=== PATIENT | female | born 1940 | race Caucasian/White ===

== ENCOUNTER → 2017-04-05 | Outpatient (CLI) | payer MEDICARE ==
--- NOTE | 2017-04-05 10:27 | XR ---
EXAMINATION TYPE: XR knee complete bilateral DATE OF EXAM: 04/05/2017 COMPARISON: NONE HISTORY: 77 year-old female bilateral knee pain. TECHNIQUE: 3 views each side FINDINGS: There is mild generous spurring in the medial and patellofemoral compartments. Extensor mechanisms ar e intact without significant joint effusions. No acute fracture, subluxation, or dislocation. Sclerot ic focus suggestive of a bone island within the anterior proximal right tibial metaphysis. IMPRESSION: Mild degenerative spurring in the medial and patellofemoral compartments on both sides. No acute osse ous abnormality seen. Weightbearing view could better assess the joint space.
== END | disposition home or self-care (01) ==
LOC: RADXRMAIN 09:33
PROVIDERS: ATTEND Family Medicine
DX: M22.2X1 Patellofemoral disorders, right knee (principal); M22.2X2 Patellofemoral disorders, left knee; M25.561 Pain in right knee; M25.562 Pain in left knee

== ENCOUNTER → 2017-06-11 | Outpatient (CLI) | payer MEDICARE ==
[2017-06-11 16:12] LABS: Treponemal Ab Non-Reactive (Non-Reactive)
== END | disposition home or self-care (01) ==
LOC: LABWHC1 10:23
PROVIDERS: ATTEND Psychiatry & Neurology Neurology
DX: G62.9 Polyneuropathy, unspecified (principal); R20.2 Paresthesia of skin; G99.2 Myelopathy in diseases classified elsewhere; R94.8 Abnormal results of function studies of other organs and systems
CPT/HCPCS: 36415; 82550; 82565; 84165; 84207; 85652; 86780

== ENCOUNTER → 2017-06-13 | Outpatient (CLI) | payer MEDICARE ==
--- NOTE | 2017-06-13 10:02 | US ---
EXAMINATION TYPE: US venous doppler duplex LE LT DATE OF EXAM: 06/13/2017 9:49 AM COMPARISON: NONE CLINICAL HISTORY: I82.409 Acute embolism and thrombosis of unspecified deep ve. Left leg numbness, pa tient on blood thinners SIDE PERFORMED: Left TECHNIQUE: The lower extremity deep venous system is examined utilizing real time linear array sonog gabriela with graded compression, doppler sonography and color-flow sonography. VESSELS IMAGED: External Iliac Vein (EIV) Common Femoral Vein Deep Femoral Vein Greater Saphenous Vein * Femoral Vein Popliteal Vein Small Saphenous Vein * Proximal Calf Veins (* superficial vessels) Left Leg: Appears negative for DVT Grayscale, color doppler, spectral doppler imaging performed of the deep veins of the left lower extr emity. There is normal flow, compressibility, vascular waveforms. IMPRESSION: No ultrasound evidence for acute DVT in the left lower extremity.
--- NOTE | 2017-06-13 13:14 | MR ---
EXAMINATION TYPE: MR cervical spine with and without contrast. DATE OF EXAM: 06/13/2017 COMPARISON: 11/02/2009 HISTORY: myelopathy TECHNIQUE: Exam limited by artifact. Multiplanar, multisequence images of the cervical spine were acquired utilizing 7 mL intravenous Gada vist gadolinium contrast. Diffusion weighted imaging was performed. C2-C3: Chronic appearing deformity of the odontoid is stable from previous exam. Posterior spondylosi s and hypertrophic changes but no canal stenosis or focal herniation. Uncovertebral joint hypertrophy with no significant foraminal encroachment. C3-C4: Degenerative disc disease with bilateral facet arthropathy and uncovertebral joint hypertrophy . There is moderate bilateral foraminal encroachment greater on the right due to uncovertebral joint hypertrophy and disc bulging capped by spur. Findings are stable. C4-C5: Severe degenerative disc disease. Focal central disc protrusion or herniation results in anter ior impression upon the spinal cord. Could not exclude a degree of increased signal along the posteri or margin the spinal cord and myelitis or myelomalacia. No enhancement. Facet arthropathy and uncover tebral joint hypertrophy contribute to mild to moderate bilateral foraminal encroachment. Findings ar e stable. C5-C6: Severe degenerative disc disease with broad-based disc protrusion greater paracentrally the le ft. There is facet arthropathy and moderate effacement of thecal sac. Moderate bilateral foraminal en croachment greater on the left and moderate central stenosis. Findings are stable. C6-C7: There is facet arthropathy and moderate to severe degenerative disc disease. Left paracentral broad-based disc bulging. Mild bilateral foraminal encroachment. Mild effacement of thecal sac. Verte bral body hemangioma C6. Borderline to mild canal stenosis. C7-T1: Severe degenerative disc disease but no canal stenosis or foraminal encroachment. Cervical segments are intact. There is normal alignment. Cervical spinal cord is of normal signal. Craniovertebral junction relationships are within normal limits. Abnormal signal within the gordo oden ggestive of remote infarct. \ IMPRESSION: 1. Multilevel moderate to severe degenerative disc disease with a focal central disc protrusion or he rniation resulting in anterior compression of the spinal cord at C4-C5. Due to artifact is difficult to exclude an area of myelitis at this level. No enhancement. 2. Hypertrophic changes and disc bulging or protrusion results in canal stenosis at C4-C5, C5-6, C6-C 7. Multilevel foraminal encroachment and facet arthropathy noted. 3. Evidence of remote pontine infarct.
== END | disposition home or self-care (01) ==
LOC: RADUSWWP 09:25
PROVIDERS: ATTEND Psychiatry & Neurology Neurology
DX: M48.02 Spinal stenosis, cervical region (principal); M50.021 Cervical disc disorder at C4-C5 level with myelopathy; M46.82 Other specified inflammatory spondylopathies, cervical region; I82.409 Acute embolism and thrombosis of unspecified deep veins of unspecified lower extremity
CPT/HCPCS: 93971; 72156; A9581

== ENCOUNTER → 2017-08-01 | Outpatient (CLI) | payer MEDICARE ==
--- NOTE | 2017-08-01 16:25 | CT ---
EXAMINATION TYPE: CT abdomen pelvis wo con DATE OF EXAM: 08/01/2017 COMPARISON: NONE HISTORY: Abd Pain R10.9 R10.2 Pelvic Pain Examination of the solid and hollow viscera is limited given the lack of contrast. FINDINGS: LUNG BASES: No evidence for nodule. No evidence for infiltrate. There is cardiomegaly with small bhavik cardial effusion. Sliding-type hiatal hernia with thickening of the distal esophagus. Consider direct visualization. LIVER/GB: Contracted gallbladder with multiple gallstones noted. No space-occupying hepatic lesion. PANCREAS: No pancreatic mass identified. No inflammatory process seen. SPLEEN: No evidence for splenomegaly. No intrasplenic lesions seen. ADRENALS: No adrenal nodules identified. No evidence for thickening. KIDNEYS: Horseshoe kidney. No evidence for renal mass. No nephrolithiasis. No hydronephrosis. BOWEL: Appendix has a normal appearance. Fluid distended proximal small bowel could be related to ent eritis. No evidence of bowel obstruction. No inflammatory process. Lymph nodes: No evidence for adenopathy greater than 1 cm. Abdominal aorta: Atheromatous changes seen. No evidence for aneurysm. Genital organs: No significant abnormality. Other: Low midline anterior abdominal wall fat-containing hernia with mild fat stranding seen. Additi onal small umbilical hernia noted. IMPRESSION: 1. Low midline anterior abdominal wall fat-containing hernia with mild fat stranding seen. 2. Correlate for jejunal enteritis. 3. Horseshoe kidney. 4. Contracted gallbladder with multiple stones. 5. Small hiatal hernia with mild wall thickening distal esophagus. 6 cardiomegaly with small pericardial effusion.
== END | disposition home or self-care (01) ==
LOC: RADCTMAIN 15:52
PROVIDERS: ATTEND Family Medicine
DX: K80.20 Calculus of gallbladder without cholecystitis without obstruction (principal); K44.9 Diaphragmatic hernia without obstruction or gangrene; K22.9 Disease of esophagus, unspecified; K43.9 Ventral hernia without obstruction or gangrene; Q63.1 Lobulated, fused and horseshoe kidney; R10.2 Pelvic and perineal pain
CPT/HCPCS: 74176

== ENCOUNTER → 2017-10-02 | Outpatient (CLI) | payer MEDICARE ==
--- NOTE | 2017-10-02 09:43 | US ---
EXAMINATION TYPE: US venous doppler duplex LE LT DATE OF EXAM: 10/02/2017 9:13 AM COMPARISON: 06/13/2017 CLINICAL HISTORY: R22.42 swelling left lower extremity. Intermittent left leg swelling x 4 months, pa tient on blood thinners SIDE PERFORMED: Left TECHNIQUE: The lower extremity deep venous system is examined utilizing real time linear array sonog gabriela with graded compression, doppler sonography and color-flow sonography. VESSELS IMAGED: External Iliac Vein (EIV) Common Femoral Vein Deep Femoral Vein Greater Saphenous Vein * Femoral Vein Popliteal Vein Small Saphenous Vein * Proximal Calf Veins (* superficial vessels) Left Leg: Appears negative for DVT, scanned medial lower leg below knee at palpable: no abnormality seen at this time IMPRESSION: 1. No diagnostic evidence of DVT.
== END | disposition home or self-care (01) ==
LOC: RADUSWWP 08:46
PROVIDERS: ATTEND Family Medicine
DX: M79.89 Other specified soft tissue disorders (principal)

== ENCOUNTER → 2018-01-08 | Outpatient (CLI) | payer MEDICARE ==
--- NOTE | 2018-01-08 12:15 | CT ---
EXAMINATION TYPE: CT facial bones wo con DATE OF EXAM: 01/08/2018 HISTORY: Patient complains of complete loss of smell and taste x5 weeks. CT DLP: 630.3 mGycm. Automated Exposure Control for Dose Reduction was Utilized. TECHNIQUE: CT scan of the head is performed without contrast. COMPARISON: None. FINDINGS: Within the right maxillary sinus there is an osseous region measuring 1.3 x 2.3 cm along th e posterior lateral inferior right maxillary sinus that on coronal images is contiguous with dental p ostsurgical change and may represent heterotopic ossification or and osteoma. There is no adjacent pe riosteal reaction or cortical thickening of the maxillary wall and therefore this is favored to be no naggressive. No mucosal thickening is seen within the maxillary sinuses. Scant mucosal thickening is noted within the ethmoid sinuses and few inspissated secretions are present within the sphenoid sinuses. The front al sinuses are well aerated as are the visualized portion of the mastoid air cells. There is minimal rightward nasal septal deviation with a small nasal septal spur. Mild mucosal turbinate hypertrophy i s seen of the right inferior nasal turbinate. Small nonobstructing ventral bullosa are present of the middle nasal turbinates bilaterally. Osteophytic complexes are patent bilaterally as are the frontal recesses. The globes are intact. Lenses and extra ocular muscles are symmetric. No preseptal soft tissue swelli ng or post septal soft tissue swelling. Incidental note is made of atherosclerosis of the intracrania l vasculature. Examination is not optimized for evaluation of intracranial structures. No abnormality is seen along the johnathan yovani or region of the olfactory nerves given this patient's complaint of l oss of smell. IMPRESSION: 1. Mild paranasal sinus disease and nonobstructive bilateral middle nasal turbinate yvette bullosa an d no evidence of ostiomeatal occlusion. 2. Osseous region within the inferior right maxillary sinus adjacent to postsurgical dental changes o f the maxillary bone. Therefore this could represent an osteoma or heterotopic ossification. This ove rall appears nonaggressive. 3. No abnormal finding in the region of the olfactory nerves. MRI could be performed to further evalu ate the cranial nerves given the above symptoms.
== END | disposition home or self-care (01) ==
LOC: RADCTMAIN 11:01
PROVIDERS: ATTEND Otolaryngology
DX: J34.89 Other specified disorders of nose and nasal sinuses (principal); Z98.890 Other specified postprocedural states
CPT/HCPCS: 36415; 70486; 82565; 84520

== ENCOUNTER 2018-10-03 10:55 | Day surgery (SDC) | payer MEDICARE ==
[2018-10-01 12:58] VITALS: BMI 23.0
[~2018-10-03 10:55] MED LIST: ALPRAZolam 0.25 MG TAB PO PRN; ALPRAZolam 0.5 MG TAB PO PRN; ASPIRIN 325 MG TAB PO STA; ATORVASTATIN 80 MG TAB PO STA; NITROGLYCERIN SL TABS 0.4 MG TAB SUBLINGUAL PRN; SODIUM CHLORIDE 0.9% 1,000 ML in EMPTY BAG 1 BAG IV ONE
[2018-10-03 11:22] LABS: Glucose,Whole Blood 107 mg/dL (75-99)
[2018-10-03] MEDS ORDERED: LIDOCAINE 1% INJ 10MG/ML (20 ML MDV) SQ ONE (11:22)
[2018-10-03] MEDS ORDERED: VERAPAMIL SYRINGE (5 MG/10 ML) INTRAARTER ONE (11:27)
[2018-10-03 11:36] VITALS: TEMP 97.9
[2018-10-03 11:49] LABS: Basophils % (A) 1 %; Eosinophils # (A) 0.4 k/uL (0-0.7); Eosinophils % (A) 5 %; HCT 41.2 % (34.0-46.0); HGB 13.3 gm/dL (11.4-16.0); Lymphocytes # (A) 1.6 k/uL (1.0-4.8); Lymphocytes % (A) 23 %; MCHC 32.3 g/dL (31.0-37.0); Mean Platelet Volume 7.2; Monocytes # (A) 0.3 k/uL (0-1.0); Monocytes % (A) 5 %; Neutrophils # (A) 4.5 k/uL (1.3-7.7); Neutrophils % (A) 64 %; Platelet Count 312 k/uL (150-450); RBC 4.29 m/uL (3.80-5.40); RDW 12.7 % (11.5-15.5)
[2018-10-03] MEDS ORDERED: fentaNYL (PF) 50 MCG/ML 2 ML AMP IVP ONE (12:25)
[2018-10-03] MEDS ORDERED: HEPARIN SODIUM 1,000 UN/ML (10ML VL) IV ONE ×2 (12:35→12:54)
[2018-10-03 12:46] LABS: Calcium 9.5 mg/dL (8.4-10.2); Potassium 4.3 mmol/L (3.5-5.1)
[2018-10-03] MEDS ORDERED: ADENOSINE 180 MG in SODIUM CHLORIDE 0.9% 30 ML IVP ONE (12:56)
[2018-10-03] MEDS ORDERED: IOPAMIDOL-370 125ML BTL INJ ONE (13:19)
[2018-10-03] MEDS ORDERED: RX INFO: IV CONTRAST WAS GIVEN 1 EACH MISC MISCELLANE PRN (13:19)
[2018-10-03] MEDS ORDERED: IOPAMIDOL-300 50ML BTL INJ ONE (13:20)
[2018-10-03] MEDS ORDERED: SODIUM CHLORIDE 0.9% 1,000 ML IV SCH (13:30)
[2018-10-03] MEDS ORDERED: amLODIPine 5 MG TAB PO STA (13:33)
[2018-10-03] MEDS ORDERED: amLODIPine 5 MG TAB ONE (13:34)
[2018-10-03 13:58] VITALS: RESP 16
--- NOTE | 2018-10-03 15:19 | CC ---
CARDIAC CATHETERIZATION REPORT Mrs. Shanks is a 78-year-old female with a known history of coronary artery disease, status post percutaneous revascularization, history of hypertension, hyperlipidemia, and diabetes mellitus who recently was admitted to the hospital with symptoms of chest discomfort. She had mild elevation of her troponin. Because of her prior history and her presentation, recommendation made regarding cardiac catheterization. The procedures, risks and complications were discussed with the patient who is in full understanding and agreement. PROCEDURE: Patient was brought to the cathead worker in a fasting semi-sedated state after receiving fentanyl and Benadryl and achieving moderate conscious sedated state. Using Xylocaine anesthesia and Seldinger technique, a 6-[place]ri [place]ankan sheath was introduced in the right radial artery. Selective right and left angiography performed using 5-[place]ankan 3.5 bend right and left Aris catheter, multiple views of the coronary artery including hemiaxial views were obtained. Following that, a 6-[place]ankan FL 3.5 guiding catheter introduced into the system. After cannulating the left main, a Doppler flow wire was introduced into the distal left circumflex and the fraction flow reserve was calculated after infusion of adenosine. Following that, a 5-[place]ankan tight pigtail catheter was introduced into the left ventricle and a 30 degree FERNANDO view of the left ventricle was obtained. Following that, catheter and sheath were removed. Hemostasis was obtained with deployment of a TR band. There was no immediate complication. Patient was returned to her room in stable condition. Of note, the patient received 5,000 units of intravenous heparin as well as intra-arterial verapamil. FINDINGS: LEFT MAIN: This is a large-sized vessel bifurcating into left circumflex, left anterior descending artery. Left main coronary artery has no evidence of high-grade stenosis. LEFT ANTERIOR DESCENDING ARTERY: This is a large-sized vessel, reaching toward the apex with a wraparound apex segment. The stented segment in the proximal and mid LAD are patent. The mid LAD distal to the first stent has a 20% plaque. The rest of the vessel has no high-grade stenosis. There is a moderately-sized diagonal branch, that is a jailed branch that has a 60% to 70% plaque at the ostium. LEFT CIRCUMFLEX: This is a nondominant large size vessel giving rise to a large obtuse marginal branch. The left circumflex in the mid segment has a 50% eccentric plaque, distally has a 40%-50% lesion. RIGHT CORONARY ARTERY: This is a dominant vessel, moderate in caliber, diffusely diseased. The stented segment in the mid area are patent. The right coronary artery has diffuse intimal disease in the proximal segment of 30% to 40% without any evidence of high-grade stenosis. LEFT VENTRICULOGRAM: Left ventriculogram is performed in 30 degree FERNANDO view and revealed normal left ventricular size and systolic function. Ejection fraction 60%. There was no significant mitral regurgitation. HEMODYNAMICS: There was no gradient across the aortic valve. The left ventricular end diastolic pressure was 12 mmHg. FRACTIONAL FLOW RESERVE: Fractional flow reserve was 0.93 and IFR was 0.94. IMPRESSION: 1. No evidence of restenosis in the stented segment of the LAD and to the right coronary artery. 2. Moderate lesion in the mid left circumflex. 3. Normal left ventricular size and systolic function. 4. Not hemodynamically significant lesion of the left circumflex. RECOMMENDATION: In view of finding anatomy, I recommend continue medical therapy with aggressive coronary risk modifications being initiated. Those findings and recommendation were discussed with the patient and her family who are in full understanding and agreement. Duration of procedure is 35 minutes. MMODL / IJN: [id number] /
[2018-10-03 18:32] VITALS: BP 161/79; PULSE 67
[2018-10-04] MEDS ORDERED: LEVOTHYROXINE 137 MCG TAB PO SCH (09:00)
[2018-10-04] MEDS ORDERED: CLOPIDOGREL 75 MG TAB PO SCH (09:00)
[2018-10-04] MEDS ORDERED: ASPIRIN 325 MG TAB PO SCH (09:00)
[2018-10-04] MEDS ORDERED: ATORVASTATIN 20 MG TAB PO SCH (09:00)
[2018-10-04] MEDS ORDERED: LOSARTAN 50 MG TAB PO SCH (09:00)
[2018-10-04] MEDS ORDERED: MAGNESIUM OXIDE 400 MG TAB PO SCH (09:00)
[2018-10-04] MEDS ORDERED: CHOLECALCIFEROL 1,000 UNIT TAB PO SCH (09:00)
[2018-10-04] MEDS ORDERED: LINAGLIPTIN 5 MG TABLET PO SCH (09:00)
[2018-10-04] MEDS ORDERED: FOLIC ACID 1 MG TAB PO SCH (12:00)
[2018-10-04] MEDS ORDERED: MULTIVITAMINS, THERA 1 EACH TAB PO SCH (12:00)
== END 2018-10-03 18:23 | disposition home or self-care (01) ==
LOC: CATHCVL 10:55
PROVIDERS: ATTEND Internal Medicine Interventional Cardiology
DX: I25.110 Atherosclerotic heart disease of native coronary artery with unstable angina pectoris (principal); I10 Essential (primary) hypertension; E78.2 Mixed hyperlipidemia; E11.9 Type 2 diabetes mellitus without complications; Z95.5 Presence of coronary angioplasty implant and graft; Z79.84 Long term (current) use of oral hypoglycemic drugs; Z79.02 Long term (current) use of antithrombotics/antiplatelets; Z79.82 Long term (current) use of aspirin; Z79.890 Hormone replacement therapy; Z79.899 Other long term (current) drug therapy
CPT/HCPCS: 93571; 93458; 80048; 85025; C1887; C1894; C1769 ×2; J2001; J3010; J1644; J0153; Q9967 ×2

== ENCOUNTER → 2019-05-03 | Outpatient (CLI) | payer MEDICARE ==
--- NOTE | 2019-05-03 14:55 | MR ---
EXAMINATION TYPE: MR lumbar spine wo con DATE OF EXAM: 05/03/2019 COMPARISON: NONE HISTORY: Low back pain TECHNIQUE: T1 and T2 axial and sagittal images of the lumbar spine are submitted. FINDINGS: There is no abnormal signal seen within the visualized spinal cord. There is evidence of a horseshoe kidney. Aorta of normal caliber.. Cholelithiasis There is complete loss of disc space and signal at all levels. On the sagittal images there is partial inclusion of the lower thoracic spine which demonstrates comp lete loss of disc signal and space at all levels with sagittal disc bulging at T10-T11, T11-T12 and T 12-L1. Facet arthropathy at these levels. Vertebral body hemangioma T12. At L1-2 there is central disc bulging with mild effacement of thecal sac. Facet arthropathy. No Canal stenosis. Mild bilateral foraminal encroachment. Severe degenerative disc disease. At L2-3 there is severe degenerative disc disease. There is broad-based central disc bulging with a l eft paracentral and lateral disc herniation extending along the upper margin of the L3 vertebral body paracentrally to the right compatible with a extruded disc fragment. There is narrowing of the right neural foramina. Facet arthropathy noted. At L3-4 there is severe degenerative disc disease with broad-based disc protrusion. Moderate to sever e bilateral foraminal encroachment with facet arthropathy and ligamentum flavum hypertrophy. Moderate central stenosis. At L4-5 there is severe degenerative disc disease with broad-based central disc protrusion. Hypertrop hy of the ligamentum flavum and facet joints result in moderate bilateral foraminal encroachment and canal stenosis. At L5-S1 there is severe degenerative disc disease with advanced facet arthropathy. There is moderate to severe bilateral foraminal encroachment. Mild central stenosis with central disc bulging. Intraos seous signal large area abnormality involving S1 on the right appears to be high in signal on both T1 and T2-weighted may represent a fatty hemangioma. Retrospectively a lucent lesion was seen on the CT scan of 08/01/2017 and the findings are stable and therefore likely benign. On bone scan could BE obt ained as clinically warranted. IMPRESSION: 1. Severe degenerative disc disease at all levels with complete loss of disc space and multilevel for aminal encroachment. 2. There is a right paracentral disc herniation extending laterally to the right L2-L3 with extruded disc fragment extending along the upper margin of the L3 vertebral body. 3. Multilevel canal stenosis secondary to multilevel disc protrusion and hypertrophic facet arthropat hy. 4. Interosseous lesion of the S1 segment of the sacrum on the right is retrospectively stable relativ e to the CT scan of 08/01/2017. High signal on both T1 and T2 images suggestive is a fatty neoplasm an d possibly related to a fatty hemangioma. Correlate with bone scan as clinically warranted. 5. Horseshoe kidney. 6. Cholelithiasis.
== END | disposition home or self-care (01) ==
LOC: RADMRIMAIN 13:27
PROVIDERS: ATTEND Family Medicine
DX: M48.061 Spinal stenosis, lumbar region without neurogenic claudication (principal); M51.26 Other intervertebral disc displacement, lumbar region; M51.36 Other intervertebral disc degeneration, lumbar region; M46.96 Unspecified inflammatory spondylopathy, lumbar region
CPT/HCPCS: 72148

== ENCOUNTER → 2019-06-02 | Outpatient (CLI) | payer MEDICARE ==
[2019-06-02 16:14] LABS: Chol/HDL Ratio 2.83
== END | disposition home or self-care (01) ==
LOC: LABWHC1 08:34
PROVIDERS: ATTEND Nurse Practitioner Adult Health
DX: E78.2 Mixed hyperlipidemia (principal)
CPT/HCPCS: 36415; 80061; 84450; 84460

== ENCOUNTER → 2019-07-31 | Outpatient (CLI) | payer MEDICARE ==
[2019-07-31 10:05] LABS: HCT 40.6 % (34.0-46.0); HGB 13.3 gm/dL (11.4-16.0); MCH 31.8 pg (25.0-35.0); MCHC 32.7 g/dL (31.0-37.0); MCV 97.5 fL (80.0-100.0); Mean Platelet Volume 8.3; Platelet Count 170 k/uL (150-450); RBC 4.16 m/uL (3.80-5.40); RDW 13.3 % (11.5-15.5); WBC 5.4 k/uL (3.8-10.6)
[2019-07-31 19:20] LABS: African American GFR (CKD) 50.1 (60.0-200.0); Albumin 4.3 g/dL (3.80-4.90); Albumin/Globulin Ratio 2.87 (1.60-3.17); Anion Gap 9.1 mmol/L (4.00-12.00); BUN/Creat Ratio 18.33 Ratio (12.00-20.00); Calcium 9.4 mg/dL (8.7-10.3); Carbon Dioxide 24.9 mmol/L (21.6-31.8); Globulin 1.5 g/dL (1.6-3.3); Potassium 4.7 mmol/L (3.5-5.5); Total Bilirubin 1.1 mg/dL (0.3-1.2); Total Protein 5.8 g/dL (6.2-8.2)
== END | disposition home or self-care (01) ==
LOC: LABWHC1 08:58
PROVIDERS: ATTEND Nurse Practitioner Adult Health
DX: I10 Essential (primary) hypertension (principal); R06.02 Shortness of breath
CPT/HCPCS: 36415; 80053; 83880; 85027

== ENCOUNTER 2019-08-05 08:51 | Day surgery (SDC) | payer MEDICARE ==
[2019-08-04 09:16] VITALS: BMI 23.3
[2019-08-05] MEDS ORDERED: SODIUM CHLORIDE 0.9% 1,000 ML IV ONE (09:15)
[2019-08-05 09:22] VITALS: RESP 16; TEMP 97.9
[2019-08-05 09:29] LABS: Glucose,Whole Blood 110 mg/dL (75-99)
[2019-08-05] MEDS ORDERED: LOSARTAN 50 MG TAB PO STA (09:31)
[2019-08-05] MEDS ORDERED: LIDOCAINE 1% INJ 10MG/ML (20 ML MDV) ONE (12:37)
[2019-08-05] MEDS ORDERED: fentaNYL (PF) 50 MCG/ML 2 ML AMP ONE (12:37)
[2019-08-05] MEDS ORDERED: VERAPAMIL 2.5 MG/ML 2 ML AMP ONE ×2 (12:38→12:50)
[2019-08-05] MEDS ORDERED: LIDOCAINE 1% INJ 10MG/ML (20 ML MDV) SQ ONE (12:42)
[2019-08-05] MEDS ORDERED: fentaNYL (PF) 50 MCG/ML 2 ML AMP IV ONE (12:42)
[2019-08-05] MEDS: VERAPAMIL SYRINGE (5 MG/10 ML) INTRAARTER ONE ×4 (12:43→12:54)
[2019-08-05] MEDS: MIDAZOLAM 2 MG/2 ML VIAL IV ONE ×2 (12:46→12:49)
[2019-08-05] MEDS ORDERED: HEPARIN SODIUM 1,000 UN/ML (10ML VL) IV ONE (12:59)
[2019-08-05] MEDS ORDERED: IOPAMIDOL-370 125ML BTL INJ ONE (13:00)
[2019-08-05] MEDS ORDERED: RX INFO: IV CONTRAST WAS GIVEN 1 EACH MISC MISCELLANE PRN (13:11)
[2019-08-05] MEDS ORDERED: SODIUM CHLORIDE 0.9% 1,000 ML IV SCH (13:15)
--- NOTE | 2019-08-05 16:35 | CC ---
CARDIAC CATHETERIZATION REPORT Mrs. Shanks is a 79-year-old female with known history of hypertension, history of coronary artery disease, history of hyperlipidemia, who presented with symptoms of progressive dyspnea with symptoms of PND and orthopnea. In view of that, recommendation was made regarding cardiac catheterization. The procedure, its risks and complications were discussed with the patient, who was in full understanding and agreement. PROCEDURE: The patient was brought to the animal laboratory helper in a fasting, semi-sedated state after receiving fentanyl and Benadryl and achieving a moderate conscious sedated state. Using Xylocaine anesthesia and Seldinger technique, a 6-Ecuadorean sheath was introduced in the right radial artery. Selective right and left coronary angiography was performed using 5 Ecuadorean 3-1/2 bend right and left Aris catheters. Multiple views were taken of the coronary arteries, including hemiaxial views. Following that, catheter and sheath were removed. Hemostasis was obtained with deployment of a TR band. There was no immediate complication. Patient was returned to her room in stable condition. Of note, patient received a total of 4000 units of intravenous heparin as well as multiple doses of intra-arterial verapamil because of severe vasospastic reaction. FINDINGS: LEFT MAIN: This is a large-sized vessel bifurcating into left circumflex, left anterior descending artery. Left main coronary artery has no evidence of high-grade stenosis. LEFT ANTERIOR DESCENDING ARTERY: This is a large-sized vessel reaching to the apex with a wrap around the apex segment. The stented segment in the proximal and mid areas are patent without any significant in-stent restenosis. The first diagonal branch is a small- to moderate-sized branch that has an 80% stenosis at the takeoff. The rest of the vessel has no high-grade stenosis. LEFT CIRCUMFLEX: This is a nondominant vessel giving rise to 3 obtuse marginal branches. The proximal left circumflex has a 30% to 40% plaque. The distal obtuse marginal branch has a 60% plaque. The rest of the vessel has no high-grade stenosis. RIGHT CORONARY ARTERY: This is dominant with moderate-sized caliber bifurcating distally into PDA and posterolateral segment and branches. The right coronary artery stented segment in the mid area is patent. There is no evidence of high-grade stenosis. There is diffuse intimal disease throughout the right coronary artery without any evidence of critical stenosis. LEFT VENTRICULOGRAM: Left ventriculogram was not performed. IMPRESSION: 1. Mild to moderate triple-vessel coronary artery disease. 2. No progression of disease compared to September 2018. RECOMMENDATIONS: 1. In view of findings and anatomy, I recommend continued medical therapy with the aggressive coronary risk modifications that have been initiated. Those findings and recommendations were discussed with the patient and her family, and they are in full understanding and agreement. Duration of procedure was 21 minutes. MARIAJOSE / JANAYN: [id number] /
--- NOTE | 2019-08-05 16:43 | CC ---
CARDIAC CATHETERIZATION REPORT August 05, 2019 To: Dr. Dallas Schaeffer Re: Edith Shanks ([id number]) Dear Dr. Schaeffer, I had the pleasure of performing cardiac catheterization on Mrs. Shanks at [facility] on August 05. A full copy of the procedure note will be forwarded to you. In brief, she was found to have no progression of disease compared with the images obtained in September of this year. Based on those findings, I have recommended continued medical therapy with the aggressive coronary risk modifications that have been initiated. I will further evaluate her and monitor her regurgitation. Depending on her progress, further recommendations will be made. Thank you again for allowing me to participate in this patient's care. Please feel free to call with any questions. Sincerely yours, Scottie Raphael MD . MARIAJOSE / CARLOS: [id number] /
[2019-08-05 17:26] VITALS: BP 162/79; PULSE 62
[2019-08-06] MEDS ORDERED: NON FORMULARY DRUG (Sitagliptin 100 MG) PO SCH (09:00)
[2019-08-06] MEDS ORDERED: NON FORMULARY DRUG (Losartan Potassium [Losartan Potassium] 100 MG) PO SCH (09:00)
[2019-08-06] MEDS ORDERED: ASPIRIN 325 MG TAB PO SCH (09:00)
[2019-08-06] MEDS ORDERED: CLOPIDOGREL 75 MG TAB PO SCH (09:00)
[2019-08-06] MEDS ORDERED: MULTIVIT WITH CALCIUM IRON MIN PO SCH (09:00)
[2019-08-06] MEDS ORDERED: NON FORMULARY DRUG (Simvastatin [Simvastatin] 40 MG) PO SCH (09:00)
[2019-08-06] MEDS ORDERED: CHOLECALCIFEROL 1,000 UNIT TAB PO SCH (09:00)
[2019-08-06] MEDS ORDERED: FOLIC ACID 1 MG TAB PO SCH (09:00)
[2019-08-06] MEDS ORDERED: LEVOTHYROXINE 137 MCG TAB PO SCH (09:00)
[2019-08-06] MEDS ORDERED: MAGNESIUM 200 MG PO SCH (09:00)
== END 2019-08-05 18:00 | disposition home or self-care (01) ==
LOC: CATHCVL 08:51
PROVIDERS: ATTEND Internal Medicine Interventional Cardiology
DX: I25.10 Atherosclerotic heart disease of native coronary artery without angina pectoris (principal); I49.3 Ventricular premature depolarization; I10 Essential (primary) hypertension; E11.9 Type 2 diabetes mellitus without complications; E78.2 Mixed hyperlipidemia; Z79.82 Long term (current) use of aspirin; Z79.84 Long term (current) use of oral hypoglycemic drugs; Z82.49 Family history of ischemic heart disease and other diseases of the circulatory system
CPT/HCPCS: 93454; J2250; J2001; J3010; J1644; Q9967

== ENCOUNTER → 2019-08-05 | Outpatient (CLI) | payer MEDICARE ==
[2019-08-05 08:51] LABS: HCT 43.3 % (34.0-46.0); HGB 13.8 gm/dL (11.4-16.0); MCH 31.1 pg (25.0-35.0); MCHC 31.8 g/dL (31.0-37.0); MCV 97.9 fL (80.0-100.0); Mean Platelet Volume 7.8; Platelet Count 196 k/uL (150-450); RBC 4.42 m/uL (3.80-5.40); RDW 13.4 % (11.5-15.5); WBC 5.3 k/uL (3.8-10.6)
[2019-08-05 09:00] LABS: Potassium 3.7 mmol/L (3.5-5.1)
== END | disposition home or self-care (01) ==
LOC: LABPAT 08:38
PROVIDERS: ATTEND Internal Medicine Interventional Cardiology
DX: Z01.812 Encounter for preprocedural laboratory examination (principal); E78.2 Mixed hyperlipidemia; I25.10 Atherosclerotic heart disease of native coronary artery without angina pectoris
CPT/HCPCS: 36415; 80051; 82565; 84520; 85027

== ENCOUNTER → 2019-08-11 | Outpatient (CLI) | payer MEDICARE ==
[2019-08-11 17:43] LABS: African American GFR (CKD) 41.6 (60.0-200.0); Anion Gap 10.9 mmol/L (4.00-12.00); Carbon Dioxide 29.1 mmol/L (21.6-31.8); Potassium 3.8 mmol/L (3.5-5.5)
== END | disposition home or self-care (01) ==
LOC: LABWHC1 10:13
PROVIDERS: ATTEND Internal Medicine Interventional Cardiology
DX: I10 Essential (primary) hypertension (principal)
CPT/HCPCS: 36415; 80051; 82565; 84520

== ENCOUNTER → 2019-08-27 | Outpatient (CLI) | payer MEDICARE ==
--- NOTE | 2019-08-27 12:06 | XR ---
EXAMINATION TYPE: XR chest 2V DATE OF EXAM: 08/27/2019 COMPARISON: NONE HISTORY: Shortness of breath TECHNIQUE: Frontal and lateral views of the chest are obtained. FINDINGS: Scattered senescent parenchymal changes noted. Hyperinflation compatible with COPD. No evidence for infiltrate. No evidence for atelectasis. Heart size is stable. Mediastinal structures are stable and grossly unremarkable. No evidence for hilar prominence. Degenerative changes dorsal spine. IMPRESSION: 1. No evidence for acute pulmonary disease.
== END ==
LOC: RADXRWHC 11:06
PROVIDERS: ATTEND Family Medicine
DX: R09.02 Hypoxemia (principal)
CPT/HCPCS: 71046

== ENCOUNTER → 2020-07-16 | Outpatient (CLI) | payer MEDICARE ==
[2020-07-16 11:22] LABS: African American GFR (CKD) 62.1 (60.0-200.0); Albumin 3.8 g/dL (3.80-4.90); Albumin/Globulin Ratio 1.81 (1.60-3.17); Anion Gap 7.5 mmol/L (4.00-12.00); Calcium 9.5 mg/dL (8.7-10.3); Carbon Dioxide 26.5 mmol/L (21.6-31.8); Globulin 2.1 g/dL (1.6-3.3); Non-African American GFR(CKD) 53.5 (60.0-200.0); Potassium 4.7 mmol/L (3.5-5.5); Total Bilirubin 0.8 mg/dL (0.2-1.2); Total Protein 5.9 g/dL (6.2-8.2)
== END | disposition home or self-care (01) ==
LOC: LABWHC1 07-06 08:32
PROVIDERS: ATTEND Nurse Practitioner Adult Health
DX: I10 Essential (primary) hypertension (principal); R06.02 Shortness of breath
CPT/HCPCS: 36415; 80053; 83880

== ENCOUNTER → 2021-04-07 | Outpatient (CLI) | payer MEDICARE ==
--- NOTE | 2021-04-13 12:54 | P.ARTDOP ---
Arterial Doppler LOWER EXTREMITY ARTERIAL DOPPLER: DATE OF SERVICE: 04/07/2021 Reason for study: Bilateral foot numbness and swelling. Doppler waveforms: Multiphasic bilaterally throughout. Irregular pulses suggest A. fib.. Pulse volume recording: []. Pressure gradients: None. Ankle-brachial indices: Greater than 1 bilaterally. Toe brachial indices: 0.87 bilaterally Impression: Normal study.
== END | disposition home or self-care (01) ==
LOC: RADUSWWP 08:06
PROVIDERS: ATTEND Family Medicine
DX: M79.89 Other specified soft tissue disorders (principal); I73.9 Peripheral vascular disease, unspecified
CPT/HCPCS: 93922

== ENCOUNTER → 2023-04-05 | Outpatient (CLI) | payer MEDICARE ==
--- NOTE | 2023-04-05 10:44 | XR ---
EXAMINATION TYPE: XR lumbosacral spine min 4V DATE OF EXAM: 04/05/2023 CLINICAL HISTORY: pain COMPARISON: NONE TECHNIQUE: Frontal, lateral, and oblique images of the lumbar spine are obtained. FINDINGS: Curvature convex to the right. There are 5 lumbar type vertebral bodies identified. The l umbar spine shows satisfactory alignment without evidence of acute fracture or dislocation. Vertebral body heights are within normal limits. Severe multilevel degenerative disc disease and spondylosis. Severe facet joint arthropathy. The overlying soft tissue appears unremarkable. Infrarenal abdomina l aortic aneurysm measuring 3.2 cm. IMPRESSION: No acute fracture or dislocation is seen in the lumbar spine. Advanced degenerative aparicio ges.
== END | disposition home or self-care (01) ==
LOC: RADXRMAIN 08:55
PROVIDERS: ATTEND Family Medicine
DX: M47.816 Spondylosis without myelopathy or radiculopathy, lumbar region (principal)
CPT/HCPCS: 72110

== ENCOUNTER → 2024-10-06 | Outpatient (CLI) | payer MEDICARE ==
[2024-10-06 10:28] LABS: ALT 17 U/L (8-44); AST 19 U/L (13-35); Chol/HDL Ratio 3.22 Ratio; LDL Cholesterol,Calculated 98.5 mg/dL (0.0-131.0)
== END | disposition home or self-care (01) ==
LOC: LABWHC1 07:42
PROVIDERS: ATTEND Internal Medicine Interventional Cardiology
DX: E78.2 Mixed hyperlipidemia (principal)
CPT/HCPCS: 36415; 80061; 84450; 84460

== ENCOUNTER → 2025-01-05 | Outpatient (CLI) | payer MEDICARE ==
--- NOTE | 2025-01-05 14:11 | XR ---
EXAMINATION TYPE: XR chest 2V DATE OF EXAM: 01/05/2025 12:31 PM COMPARISON: 08/27/2019 CLINICAL INDICATION: Female, 85 years old with history of R05.9 COUGH, UNSPECIFIED, , TECHNIQUE: Frontal and lateral views FINDINGS: The heart is mildly enlarged. Tortuous thoracic aorta with atherosclerotic arch calcifications. Hyper inflation. Some strandy atelectasis in the lower lungs. No brooks consolidation or pleural effusion. C hronic full-thickness rotator cuff tear right shoulder. IMPRESSION: Mild cardiomegaly and COPD. No definite acute process. [facility], Workstation: [facility], 01/05/2025 2:09 PM
== END | disposition home or self-care (01) ==
LOC: RADXRMAIN 12:11
PROVIDERS: ATTEND Family Medicine
DX: J44.9 Chronic obstructive pulmonary disease, unspecified (principal); I51.7 Cardiomegaly
CPT/HCPCS: 71046